=== PATIENT | female | born 1985 | race Caucasian/White ===

== ENCOUNTER 2018-11-22 12:02 | Emergency (ER) | payer OTHER ==
[~2018-11-22] VITALS: Ht 154.9 cm; Wt 86.2 kg
--- OUTSIDE RECORDS SUMMARY | 2018-11-22 12:05 | XMS REPORT ---
Author Author [facility] Address Unknown Phone Unavailable Care Team Providers [employer] Engineer Name Role Phone Unavailable Unavailable Payers Payer Name Policy Type Policy Number Effective Date Expiration Date Problems This patient has no known problems. Allergies, Adverse Reactions, Alerts Allergy Name Allergy Type Status Severity Reaction(s) Onset Date Inactive Date Treating Clinician Comments azithromycin DA Active U 2017-08-04 00:00:00 Medications This patient has no known medications. 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 Sagittal and coronal reformatted images were generated. Automated exposure control for dose reduction. COMPARISON: None FINDINGS: No acute fracture of the cervical spine. No subluxation. Reversal of cervical lordosis may represent muscle spasms. Craniocervical and cervicothoracic articulations are appropriate. Vertebral body heights are preserved. Intervertebral disc heights are preserved. No prevertebral or paraspinal soft tissue abnormality. Visualized posterior fossa contents are grossly unremarkable. Lung apices are clear. C2-C3: No disc bulge or protrusion. No central canal or foraminal stenosis. C3-C4: No disc bulge or protrusion. No central canal or foraminal stenosis. C4-C5: No disc bulge or protrusion. No central canal or foraminal stenosis. C5-C6: No disc bulge or protrusion. No central canal or foraminal stenosis. C6-C7: No disc bulge or protrusion. No central canal or foraminal stenosis. C7- T1: No disc bulge or protrusion. No central canal or foraminal stenosis. IMPRESSION: Reversal of cervical lordosis in the mid cervical spine may represent muscle spasms. No bony abnormality or subluxation is seen. PAGE 1 Signed Report (CONTINUED) Name: ALEXSANDRA MULLINS [facility] : 1985 Age/S: 33 / F [address] [facility] Unit #: [id number] Loc: [place] [address] Phys: Hillary Lawson NP Acct: [id number] Dis Date: Status: REG ER PHONE #: [phone] Exam Date: 11/21/2018 1341 FAX #: [phone] Reason: PAIN EXAMS: CPT CODE: [id number] CT C-SPINE W/O CONTRAST 78643 <Continued> at 1420 Reported and signed by: Etienne Isabel MD CC: Efraín Esquivel MD; Hillary Lawson NP Technologist:Gurwinder Shanks RT(R),(MR),(CT); CTDI: DLP: Trnscb Date/Time: 11/21/2018 (1420) [email or web address] Orig Print D/T: S: 11/21/2018 (1426) PAGE 2 Signed Report
[2018-11-22] MEDS ORDERED: IBUPROFEN 600 MG TAB PO ONE (13:00)
[2018-11-22] MEDS ORDERED: PREDNISONE 20 MG TAB PO ONE (13:00)
--- NOTE | 2018-11-22 14:04 | Diagnostic Imaging Report ---
EXAMINATION: CT of the neck without contrast HISTORY: Worsening left-sided neck pain for the last 4 days. Per patient's PCP neck pain related to "arthritis". COMPARISON: None TECHNIQUE: Multidetector helical axial images were obtained from the sternal notch through the skull base without intravenous contrast. Images were reconstructed using soft tissue and bone algorithms and were viewed in multiplanar format. Dose modulation, iterative reconstruction, and/or weight based adjustment of the mA/kV was utilized to reduce the radiation dose to as low as reasonably achievable. The lack of intravenous contrast limits evaluation of the neck vessels and lymph nodes. FINDINGS: Mass: None. Nodes: No lymphadenopathy. Sinuses: Mild mucosal inflammatory thickening and partial opacification of the bilateral ethmoidal, right greater than left maxillary and sphenoid sinuses. Oral cavity: Unremarkable. Salivary glands: Parotid and submandibular glands unremarkable. Pharynx: Unremarkable. Larynx: Unremarkable. Thyroid gland: Unremarkable. Upper esophagus: Unremarkable. Blood vessels: Cannot be evaluated due to lack of IV contrast. Bones: Left-sided nasal septal deviation with bony spur compressing the left middle turbinate. Incidental findings: Unerupted bilateral mandibular last molars and partially unerupted last maxillary molar. IMPRESSION: 1. No neck mass or enlarged cervical lymphadenopathy in this unenhanced study. 2. Mucosal inflammatory thickening of the paranasal sinuses as detailed above. 3. Normal cervical spine. 4. Unerupted last maxillary and mandibular molars as detailed above. Signed by: Dr. Cherelle Alva M.D. on 11/22/2018 2:01 PM
== END 2018-11-22 13:00 | disposition home or self-care (01) ==
LOC: ER 12:02
DX: M54.2 Cervicalgia (principal); S13.4XXA Sprain of ligaments of cervical spine, initial encounter; M54.12 Radiculopathy, cervical region
CPT/HCPCS: 70490; 99283; J7512